=== PATIENT | female | born 1990 | race Asian ===

== ENCOUNTER 2016-12-02 21:58 | Emergency (ER) | payer OTHER ==
[2016-12-02 22:06] VITALS: BMI 18.0
[2016-12-02] MEDS ORDERED: FAMOTIDINE 20 MG/50 ML IVPB 50 ML IVPB ONE ×2 (22:25→22:42)
--- NOTE | 2016-12-02 22:29 | PDOC ---
History of Present Illness - General Chief Complaint: Pain Stated Complaint: STOMACH PAIN/BLOOD IN STOOL Time Seen by Provider: 12/02/16 22:18 History Source: Patient Exam Limitations: No Limitations - History of Present Illness Initial Comments: 12/02/16 22:26 Patient is a 26 year old female with h/o c/o blood per rectum and upper abd pain. States she has crampy type abd pain since yesterday worsening today now 5 /10, intermittent. No alleviating or aggravating factors. Also when she uses the bathroom has bright red blood per rectum, however has had an irreg period this month and could not determine if the blood was coming from the vagina or the rectum. LMP started 6 days ago. Denies any dizziness, chest pain PMD: Dr. Reich PMHX: as above PSCOHX: neg cig, durg, etoh PfamHX: noncontributory All: NKDA GENERAL/CONSTITUTIONAL: [No fever or chills. No weakness. No weight change.] HEAD, EYES, EARS, NOSE AND THROAT: [No change in vision. No ear pain or discharge. No sore throat.] CARDIOVASCULAR: [No chest pain or shortness of breath.] RESPIRATORY: [No cough, wheezing, or hemoptysis.] GASTROINTESTINAL: [No nausea, vomiting, diarrhea or constipation. No rectal bleeding.] GENITOURINARY: [No dysuria, frequency, or change in urination.] MUSCULOSKELETAL: [No joint or muscle swelling or pain. No neck or back pain.] SKIN AND BREASTS: [No rash or easy bruising.] NEUROLOGIC: [No headache, vertigo, loss of consciousness, or loss of sensation.] PSYCHIATRIC: [No depression or anxiety.] ENDOCRINE: [No increased thirst. No abnormal weight change.] HEMATOLOGIC/LYMPHATIC: [No anemia, easy bleeding, or history of blood clots.] ALLERGIC/IMMUNOLOGIC: [No hives or skin allergy. No latex allergy.] GENERAL: [The patient is awake, alert, and fully oriented, in no acute distress. ] HEAD: [Normal with no signs of trauma.] EYES: [Pupils equal, round and reactive to light, extraocular movements intact, sclera anicteric, conjunctiva clear.] ENT: [Ears normal, nares patent, oropharynx clear without exudates. Moist mucous membranes.] NECK: [Normal range of motion, supple without lymphadenopathy, JVD, or masses.] LUNGS: [Breath sounds equal, clear to auscultation bilaterally. No wheezes, and no crackles.] HEART: [Regular rate and rhythm, normal S1 and S2 without murmur, rub.] ABDOMEN: [Soft, mild tender epigastrum and RUQ, normoactive bowel sounds. No guarding, no rebound. No masses.] RECTAL: brown stool, no gross blood, good tone EXTREMITIES: [Normal range of motion, no edema. No clubbing or cyanosis. No cords, erythema, or tenderness.] NEUROLOGICAL: [Cranial nerves II through XII grossly intact. Normal speech, normal gait.] PSYCH: [Normal mood, normal affect.] SKIN: [Warm, Dry, normal turgor, no rashes or lesions noted.] Past History - Past Medical History Allergies/Adverse Reactions: Allergies Allergy/AdvReac Type Severity Reaction Status Date / Time No Known Allergies Allergy Verified 12/02/16 22:06 Home Medications: Ambulatory Orders NK [No Known Home Medication] 12/02/16 Other medical history: denies - Psycho/Social/Smoking Cessation Hx Suicidal Ideation: No Smoking History: Never smoked *Physical Exam - Vital Signs Last Vital Signs Temp Pulse Resp BP Pulse Ox 98.0 F 98 H 18 118/82 99 12/02/16 22:04 12/02/16 22:04 12/02/16 22:04 12/02/16 22:04 12/02/16 22:04 Procedures - Laceration/Wound Repair Right Lateral Leg Sling Applied: (placed on crutches) ED Treatment Course - LABORATORY CBC & Chemistry Diagram: 12/02/16 22:44 12/02/16 22:44 Medical Decision Making - Medical Decision Making 12/03/16 01:09 patient is a 26-year-old with no pmhx c/o abd pain and rectal bleeding. Pain is upper abd 5/10 crampy type, tender in the RUQ will r/o cholecystitis US abd. Rectal bleeding will send labd and stool for occult blood. labs finding are neg stool is neg for blood US GB normal, no stone Patient is wanting to leave will discharge I discussed the physical exam findings, ancillary test results and final diagnoses with the patient. I answered all of the patient's questions. The patient was satisfied with the care received and felt comfortable with the discharge plan and treatment plan. The Patient agrees to follow up with the primary care physician within 24-72 hours. *DC/Admit/Observation/Transfer Diagnosis at time of Disposition: Abdominal pain Qualifiers: Abdominal location: upper abdomen, unspecified Qualified Code(s): R10.10 - Upper abdominal pain, unspecified - Discharge Dispostion Disposition: HOME Condition at time of disposition: Stable - Referrals Referrals: Sandra Gautam [Primary Care Provider] - - Patient Instructions Printed Discharge Instructions: DI for Abdominal Pain-Adult Additional Instructions: Your Discharge Instructions: You must call primary care physician within 24 hours to arrange follow-up. Return to the Emergency Department with any new, persistent or worsening symptoms, for fever, chills, SOB, dizziness or any other concerning changes that may occur.
[2016-12-02 22:52] LABS: BASOPHIL 1.3 % (0-2.0); EOSINOPHIL 11.2 % (0-4.5); MCH 25.8 pg (25.7-33.7); MCHC 33.2 g/dl (32.0-36.0); MEAN CELL VOLUME 77.7 fl (80-96); MEAN PLT VOLUME 9.1 fl (7.5-11.1); NEUTROPHILS 37.2 % (42.8-82.8); PLATELET COUNT 219 K/MM3 (134-434); RDW 13.4 % (11.6-15.6); WHITE BLOOD COUNT 7.1 K/mm3 (4.0-10.0)
[2016-12-02 23:15] LABS: ALBUMIN 3.6 g/dl (3.4-5.0); ANION GAP 10 (8-16); BILIRUBIN,TOTAL 0.3 mg/dL (0.2-1.0); CO2 25 mmol/L (21-32); CREATININE 0.6 mg/dL (0.55-1.02); GLUCOSE,RANDOM 101 mg/dL (74-106); SGOT/AST 13 U/L (15-37); SGPT/ALT 23 U/L (12-78); TOT PROT 7.4 g/dl (6.4-8.2)
[2016-12-02 23:16] LABS: ALK PHOS 87 U/L (45-117)
--- NOTE | 2016-12-03 01:09 | PDOC ---
*Physical Exam - Vital Signs Last Vital Signs Temp Pulse Resp BP Pulse Ox 98.0 F 98 H 18 118/82 99 12/02/16 22:04 12/02/16 22:04 12/02/16 22:04 12/02/16 22:04 12/02/16 22:04 ED Treatment Course - LABORATORY CBC & Chemistry Diagram: 12/02/16 22:44 12/02/16 22:44 - ADDITIONAL ORDERS Additional order review: Laboratory Results 12/02/16 12/02/16 22:44 22:44 Sodium 139 Potassium 3.9 Chloride 104 Carbon Dioxide 25 Anion Gap 10 BUN 14 Creatinine 0.6 Creat Clearance w eGFR > 60 Random Glucose 101 Calcium 9.0 Total Bilirubin 0.3 AST 13 L ALT 23 Alkaline Phosphatase 87 Total Protein 7.4 Albumin 3.6 Lipase 129 Stool Occult Blood Negative 12/02/16 22:44 RBC 4.68 MCV 77.7 L MCHC 33.2 RDW 13.4 MPV 9.1 Neutrophils % 37.2 L Lymphocytes % 43.3 H Monocytes % 7.0 Eosinophils % 11.2 H Basophils % 1.3 - Medications Given in the ED: ED Medications Discontinued Medications Generic Name Dose Route Start Last Admin Trade Name Freq PRN Reason Stop Dose Admin Famotidine/Sodium Chloride 50 mls @ 100 mls/hr 12/02/16 22:25 12/02/16 22:44 Pepcid 20 Mg Premixed Ivpb - IVPB 12/02/16 22:54 100 mls/hr ONCE ONE Administration Medical Decision Making - Medical Decision Making 12/03/16 01:08 26 yo F presenting to the ER wiht a complaint of rectal bleeding CBC nml guiaic negative Will discharge to home Follow up with PMD Pt seen by Midlevel Provider under my direct supervision Ancillary studies reviewed I agree with plan as outlined by Midlevel Provider *DC/Admit/Observation/Transfer Diagnosis at time of Disposition: Abdominal pain - Discharge Dispostion Disposition: HOME Condition at time of disposition: Stable - Referrals Referrals: Sandra Gautam [Primary Care Provider] - - Patient Instructions Printed Discharge Instructions: DI for Abdominal Pain-Adult Additional Instructions: Your Discharge Instructions: You must call primary care physician within 24 hours to arrange follow-up. Return to the Emergency Department with any new, persistent or worsening symptoms, for fever, chills, SOB, dizziness or any other concerning changes that may occur. - Post Discharge Activity
[2016-12-03 01:22] VITALS: BP 122/79; PULSE 86; TEMP 97.9
== END 2016-12-03 01:24 | disposition home or self-care (01) ==
LOC: JER 21:58
PROC: 3E033GC Introduction of Other Therapeutic Substance into Peripheral Vein, Percutaneous Approach (ICD-10-PCS; principal; 2016-12-02)
DX: R10.10 Upper abdominal pain, unspecified (principal)
CPT/HCPCS: 36415; 76700-TC; 80053; 82272; 83690; 85025; 96365; 99282-25